=== PATIENT | female | born 1985 | race Hispanic/Latino ===

== ENCOUNTER → 2024-08-22 10:10 | Outpatient (REF) | payer OTHER, SELFPAY ==
[2024-08-22 11:44] LABS: % Basophils 0.3 % (0-2); % Immature Granulocytes 0.3 % (0-0.5); % Monocytes 6.5 % (1.7-9.3); % Neutrophils 63.9 % (42.2-75.2); Absolute Eosinophils 0.1 10^3/uL (0-0.7); Absolute Lymphocytes 1.6 10^3/uL (1.2-3.4); Absolute Monocytes 0.4 10^3/uL (0.1-0.6); Absolute Neutrophils 3.9 10^3/uL (1.4-6.5); Hematocrit 36.9 % (37.0-47.0); Hemoglobin 12.2 g/dL (12.0-16.0); Mean Corp Hgb Conc. 33.1 g/dL (33.0-37.0); Mean Corpuscular Hgb 27.6 pg (27.0-31.0); Mean Corpuscular Volume 83.5 fL (81.0-99.0); Mean Platelet Volume 11.4 fL (7.4-10.4); Nucleated Red Blood Cells % 0 %; Platelet Count 261 10^3/uL (130-400); Red Blood Cell Count 4.42 10^6/uL (4.20-5.40); Red Cell Dist. Width 15.9 % (11.5-14.5)
[2024-08-22 12:03] LABS: Glycohemoglobin (HgbA1c) 5.6 % (4.0-5.6)
[2024-08-22 12:12] LABS: ALT (SGPT) 28 U/L (0-35); AST (SGOT) 33 U/L (14-36); Albumin 4.9 g/dl (3.5-5.0); Alkaline Phosphatase 113 U/L (38-126); Blood Urea Nitrogen 13 mg/dl (7-17); Calcium 9.5 mg/dl (8.4-10.2); Carbon Dioxide 30 mmol/L (22-30); Chloride 100 mmol/L (98-107); Glucose 87 mg/dl (70-99); HDL Cholesterol 76 mg/dl; LDL Cholesterol, Calculated 119 mg/dl; Potassium 4.1 mmol/L (3.5-5.1); Sodium 140 mmol/L (135-145); Total Bilirubin 0.4 mg/dl (0.2-1.3); Total Cholesterol 213 mg/dl (50-199); Total Protein 8.5 g/dl (6.3-8.2); Triglyceride 90 mg/dl (10-149); Very Low Density Lipoprotein 18 mg/dl (0-30); eGFR > 60.00
[2024-08-22 12:44] LABS: TSH Reflex To Free T4 1.55 uIU/ml (0.47-4.68)
== END ==
LOC: REG 10:10
PROVIDERS: ATTENDING PHYSICIAN Nurse Practitioner Family
DX: Z00.01 Encounter for general adult medical examination with abnormal findings (principal); I10 Essential (primary) hypertension
CPT/HCPCS: 36415; 80053; 80061; 83036; 84443; 85025

== ENCOUNTER 2024-10-07 13:45 | Emergency (ER) | payer OTHER, SELFPAY ==
[2024-10-07 13:55] VITALS: BP 149/94
[2024-10-07 14:19] LABS: % Basophils 0.2 % (0-2); % Eosinophils 0.3 % (0-6); % Immature Granulocytes 0.6 % (0-0.5); % Lymphocytes 5.3 % (20.5-51.1); % Monocytes 7.3 % (1.7-9.3); % Neutrophils 86.3 % (42.2-75.2); Absolute Eosinophils 0.1 10^3/uL (0-0.7); Absolute Immature Granulocytes 0.1 10^3/uL (0-0.05); Absolute Monocytes 1.4 10^3/uL (0.1-0.6); Absolute Neutrophils 16.6 10^3/uL (1.4-6.5); Hematocrit 34.9 % (37.0-47.0); Hemoglobin 11.6 g/dL (12.0-16.0); Mean Corp Hgb Conc. 33.2 g/dL (33.0-37.0); Mean Corpuscular Hgb 27.6 pg (27.0-31.0); Mean Corpuscular Volume 82.9 fL (81.0-99.0); Mean Platelet Volume 9.9 fL (7.4-10.4); Nucleated Red Blood Cells % 0 %; Platelet Count 283 10^3/uL (130-400); Red Blood Cell Count 4.21 10^6/uL (4.20-5.40); Red Cell Dist. Width 15.5 % (11.5-14.5); White Blood Cell Count 19.3 10^3/uL (4.8-10.8)
[2024-10-07 14:28] LABS: ALT (SGPT) 27 U/L (0-35); AST (SGOT) 31 U/L (14-36); Albumin 4.5 g/dl (3.5-5.0); Alkaline Phosphatase 121 U/L (38-126); Blood Urea Nitrogen 11 mg/dl (7-17); Calcium 9.2 mg/dl (8.4-10.2); Carbon Dioxide 24 mmol/L (22-30); Chloride 102 mmol/L (98-107); Glucose 163 mg/dl (70-99); Sodium 134 mmol/L (135-145); Total Bilirubin 0.4 mg/dl (0.2-1.3); Total Protein 7.9 g/dl (6.3-8.2); eGFR > 60.00
[2024-10-07 17:02] VITALS: BP 127/83
--- NOTE | 2024-10-07 21:01 | ED.GENMED ---
History of Present Illness
<Tarsha Hauser NP - Last Filed: 10/08/24 22:54>
General
Chief Complaint: Fainting Sensation
Source: patient and family (interpreting for her)
Exam Limitations: none
Time Seen by Provider: 10/07/24 20:49
Nursing documentation reviewed up to this point in time: agreed with
History of Present Illness
History of Present Illness:
Patient to ED wtih complaint of lower abdominal pain, diarrhea. States she felt ok this AM but while at work developed dizziness. Dizziness resolved but she then deveoped diarrhea. Brought to ED by family for eval. No further episodes of
diarrhea or dizziness but complains of lower abd. pain now. Denies fever/chills.
Past History
<Tarsha Huaser NP - Last Filed: 10/08/24 22:54>
Past History
ED Past Medical History: None
ED Past Surgical History:
Review of Systems
<Tarsha Hauser NP - Last Filed: 10/08/24 22:54>
Review of Systems
Allergies reviewed?: Yes
All Other Systems: ROS reviewed and negative except as documented in HPI and ROS
Constitutional: Reports no symptoms
EENT: Reports no symptoms
Respiratory: Reports no symptoms
Cardiac: Reports no symptoms
ABD/GI: Reports abdominal pain (Lower abd. pain)
: Reports no symptoms
Musculoskeletal: Reports no symptoms
Skin: Reports no symptoms
Neurological: Reports dizzy (Dizziness this AM but resolved)
Psychiatric: Reports no symptoms
Phy Exam
<Tarsha Hauser NP - Last Filed: 10/08/24 22:54>
General Physical Exam
General Presentation: mild distress
General age: appears stated age
General Skin: warm and dry
General Habitus: normal
General Mental: alert
Cardiovascular Exam
Cardiovascular Exam: regular rate/rhythm and no edema
Pulmonary Exam
Pulmonary Exam: lungs clear and no respiratory distress
Gastrointestinal Exam
Gastrointestinal Exam: soft, no organomegaly, no pulsatile mass, non distended and no cva tenderness
Palpation: left upper quadrant: No tenderness, left lower quadrant: Moderate tenderness, right upper quadrant: No tenderness and right lower quadrant: Moderate tenderness
Auscultation of Abdomen: hyperactive
Musculoskeletal Exam
Musculoskeletal Exam: full ROM and neuro vasc intact
Skin Exam
Skin Exam: normal color, warm/dry and no rash
Psychiatric Exam
Psychiatric Exam: normal mood/affect
Course
<Tarsha Hauser NP - Last Filed: 10/08/24 22:54>
Orders/Labs/Results
Orders:
Orders
10/07/24 14:00
Electrocardiogram (*1) Urgent
Reason for Study: Syncope
EKG- Treatment ONCE
10/07/24 14:08
Complete Blood Count/With Diff Urgent
Comprehensive Metabolic Panel Urgent
HCG, Serum Qualitative Screen Urgent
Comment: ADDON
10/07/24 20:59
0.9% Sodium Chloride 1000 ml [Nss] 1,000 ml IV BOLUS
Ketorolac [Toradol] 30 mg IV NOW STA
10/07/24 21:00
Add On- LAB Urgent
Tests Added?: Serum qualitative HCG
Urinalysis Reflex To Culture Urgent
Date Specimen was Collected: 10/08/24
Time Specimen was Collected: 00:27
10/07/24 21:03
Iohexol [Omnipaque] See Protocol PO NOW STA
10/07/24 22:15
Lactic Acid Urgent
10/07/24 23:59
Norovirus by PCR Urgent
BENEDICT Source: Feces/Stool
Specimen Description:
Date Specimen was Collected: 10/08/24
Time Specimen was Collected: 01:39
STOOL [C difficile Antigen & Toxins] Urgent
BENEDICT Source: Feces/Stool
Specimen Description:
Date Specimen was Collected: 10/08/24
Time Specimen was Collected: :39
Stool Culture Urgent
BENEDICT Source: Feces/Stool
Specimen Description:
Date Specimen was Collected: 10/08/24
Time Specimen was Collected: :39
10/08/24 00:00
CT Abd/pel W Iv And Oral Contr Urgent
Reason For Exam: lower abd pain
Abnormal Lab Results
10/07/24
14:08
WBC 19.3 H 10^3/uL
(4.8-10.8)
Hgb 11.6 L g/dL
(12.0-16.0)
Hct 34.9 L %
(37.0-47.0)
RDW 15.5 H %
(11.5-14.5)
Abs Immat Gran (auto) 0.1 H 10^3/uL
(0-0.05)
Absolute Neuts (auto) 16.6 H 10^3/uL
(1.4-6.5)
Absolute Lymphs (auto) 1.0 L 10^3/uL
(1.2-3.4)
Absolute Monos (auto) 1.4 H 10^3/uL
(0.1-0.6)
Immature Gran % 0.6 H %
(0-0.5)
Neutrophils % 86.3 H %
(42.2-75.2)
Lymphocytes % 5.3 L %
(20.5-51.1)
Sodium 134 L mmol/L
(135-145)
Glucose 163 H mg/dl
(70-99)
10/07/24 14:08
10/07/24 14:08
Vital Signs
Initial and Last Documented VS:
Initial Vital Signs
Temp Pulse Resp BP Pulse Ox
98.1 F 101 18 149/94 98
10/07/24 13:55 10/07/24 13:55 10/07/24 13:55 10/07/24 13:55 10/07/24 13:55
Last Documented Vital Signs
Temp Pulse Resp BP Pulse Ox
98.3 F 68 26 145/79 99
10/07/24 17:02 10/08/24 01:51 10/08/24 00:45 10/07/24 23:00 10/08/24 01:52
<Eric Garcia, DO - Last Filed: 10/08/24 01:21>
Orders/Labs/Results
Orders:
Orders
10/07/24 14:00
Electrocardiogram (*1) Urgent
Reason for Study: Syncope
EKG- Treatment ONCE
10/07/24 14:08
Complete Blood Count/With Diff Urgent
Comprehensive Metabolic Panel Urgent
HCG, Serum Qualitative Screen Urgent
Comment: ADDON
10/07/24 20:59
0.9% Sodium Chloride 1000 ml [Nss] 1,000 ml IV BOLUS
Ketorolac [Toradol] 30 mg IV NOW STA
10/07/24 21:00
Add On- LAB Urgent
Tests Added?: Serum qualitative HCG
Urinalysis Reflex To Culture Urgent
Date Specimen was Collected: 10/08/24
Time Specimen was Collected: 00:27
10/07/24 21:03
Iohexol [Omnipaque] See Protocol PO NOW STA
10/07/24 22:15
Lactic Acid Urgent
10/07/24 23:59
Norovirus by PCR Urgent
BENEDICT Source: Feces/Stool
Specimen Description:
Date Specimen was Collected: 10/08/24
Time Specimen was Collected: 01:39
STOOL [C difficile Antigen & Toxins] Urgent
BENEDICT Source: Feces/Stool
Specimen Description:
Date Specimen was Collected: 10/08/24
Time Specimen was Collected: 01:39
Stool Culture Urgent
BENEDICT Source: Feces/Stool
Specimen Description:
Date Specimen was Collected: 10/08/24
Time Specimen was Collected: 01:39
10/08/24 00:00
CT Abd/pel W Iv And Oral Contr Urgent
Reason For Exam: lower abd pain
Abnormal Lab Results
10/07/24
14:08
WBC 19.3 H 10^3/uL
(4.8-10.8)
Hgb 11.6 L g/dL
(12.0-16.0)
Hct 34.9 L %
(37.0-47.0)
RDW 15.5 H %
(11.5-14.5)
Abs Immat Gran (auto) 0.1 H 10^3/uL
(0-0.05)
Absolute Neuts (auto) 16.6 H 10^3/uL
(1.4-6.5)
Absolute Lymphs (auto) 1.0 L 10^3/uL
(1.2-3.4)
Absolute Monos (auto) 1.4 H 10^3/uL
(0.1-0.6)
Immature Gran % 0.6 H %
(0-0.5)
Neutrophils % 86.3 H %
(42.2-75.2)
Lymphocytes % 5.3 L %
(20.5-51.1)
Sodium 134 L mmol/L
(135-145)
Glucose 163 H mg/dl
(70-99)
10/07/24 14:08
10/07/24 14:08
Vital Signs
Initial and Last Documented VS:
Initial Vital Signs
Temp Pulse Resp BP Pulse Ox
98.1 F 101 18 149/94 98
10/07/24 13:55 10/07/24 13:55 10/07/24 13:55 10/07/24 13:55 10/07/24 13:55
Last Documented Vital Signs
Temp Pulse Resp BP Pulse Ox
98.3 F 68 26 145/79 99
10/07/24 17:02 10/08/24 01:51 10/08/24 00:45 10/07/24 23:00 10/08/24 01:52
<Tarsha Hauser NP - Last Filed: 10/08/24 22:54>
*Radiology
Radiology exam reviewed: radiology read reviewed
*Pulse Oximetry
Patient hypoxic: no
*Critical Care Note
Total Time (30-74mins, 75-104mins- exclusive of procedures): Not Applicable
<Tarsha Hauser NP - Last Filed: 10/08/24 22:54>
Update Note
Update Note:
Patient to ED wtih complaint of lower abd. pain. Had dizziness and diarrhea earlier today. No vomiting. Labs. CT, IVF ordered. Elevated WBC noted. SHe remains afebrile. Tolerating oral contrast. CT pending. Case discussed with dr. Garcia who
will assume care of this patient.
ED Attending Note
<Tarsha Hauser NP - Last Filed: 10/08/24 22:54>
-
Portions of this chart may have been created with voice recognition software.� Occasional wrong word or��sound alike� substitutions may have occurred due to the inherent limitations of voice recognition software.
<Eric Garcia DO - Last Filed: 10/08/24 01:21>
ED Attending Note
Patient seen and examined by attending physician: Yes
I performed the substantive portion of visit, reviewed & personally made and approve the management plan that is documented in note by myself or TREVON.: Yes
ED Attending Note:
This a 39-year-old female who presents after she had an episode at work where started feel dizzy. She had diarrhea. She reports she has some abdominal pain and nausea. Did not vomit. On my assessment the patient feels much better. She states
her pain is just about completely gone. She has had no further diarrhea or vomiting. White count left shift noted. Afebrile. CT read with no evidence of appendicitis. Ovarian cyst noted but do not think that is relevant. No clinical concern
for gynecologic infection. Exam: No distention, no obvious tenderness on my exam. Vital signs are within reason. I did recommend clear liquid diet for the next 24 hours and slow progression of the diet afterwards. Patient agreed also recommended
PCP follow-up
Discharge Plan
Departure
Patient Disposition: Home (Routine Discharge)
Date of Disposition: 10/08/24
Time of Disposition: 01:22
Patient with high blood pressure during this ER visit?: Yes
Discharge Problem:
Abdominal pain
Instructions: Diarrhea in teens and adults, Clear Liquid Diet, [place] Diet, Abdominal Pain, BLOOD PRESSURE
Referrals:
CLINIC,FREE [Other]
Activity Restrictions/Additional Instructions:
Please advance diet slowly as discussed. Return immediately for intractable vomiting, fevers, abdominal pain that is worsening, shortness of breath, or any other concerns. Please see your doctor in the next 3 to 5 days for follow-up and
reevaluation. Please have your doctor follow-up on your CT scan results
Your blood pressure was elevated while in the Emergency Department, please have your doctor re-evaluate it in the next 48 hours as untreated hypertension may lead to serious complications.
Avance la dieta lentamente vonnie se explic�. Regrese inmediatamente si presenta v�mitos intratables, fiebre, dolor abdominal que empeora, dificultad para respirar o cualquier otra inquietud. Consulte a sykes m�dico en los pr�ximos 3 a 5 d�as para
seguimiento y reevaluaci�n. Michelle que sykes m�dico michelle un seguimiento de los resultados de sykes tomograf�a computarizada.
Sykes presi�n arterial se elev� mientras estaba en el Departamento de Emergencias; p�catie a yskes m�dico que la vuelva a evaluar en las pr�ximas 48 horas, ya que la hipertensi�n no tratada puede provocar complicaciones graves.
Interventions
Interventions:
*Risk Screen - Suicide Last Done: 10/07/24 13:55
*General Assessment Last Done: 10/07/24 13:55
*Neglect/Abuse Screening Last Done: 10/07/24 13:55
*Nursing Disposition Last Done: 10/08/24 01:52
HB-Isylzh-Vqyvnjpkdl Assessment Last Done: 10/07/24 21:51
ED- Cardiac Assessment Last Done: 10/07/24 21:51
ED- Neurological Assessment Last Done: 10/07/24 21:51
Discharge Date and Time
Discharge Date/Time: 10/08/24 01:56
Print Language: CROATIAN
[2024-10-07 21:28] VITALS: BP 121/79
[2024-10-07] MEDS: NSS 1000 IV (21:35)
[2024-10-07] MEDS: TORADOL 30 MG IV (21:45)
[2024-10-07 21:46] LABS: HCG, Serum Qualitative Screen Negative
[2024-10-07] MEDS: OMNIPAQUE 50 ML PO (21:48)
[2024-10-07 21:51] VITALS: BMI 33.8
[2024-10-07 22:00] VITALS: BP 155/89
[2024-10-07 22:43] LABS: Lactic Acid 0.9 mmol/L (0.7-2.0)
[2024-10-07 23:00] VITALS: BP 145/79
[2024-10-08 00:44] LABS: Urine Albumin Negative (Neg - Trace); Urine Bilirubin Negative (Negative); Urine Character Clear (Clear); Urine Color Yellow; Urine Glucose Negative (Negative); Urine Ketone Negative (Negative); Urine Leukocyte Negative (Negative); Urine Nitrite Negative (Negative); Urine Occult Blood Negative (Negative); Urine Urobilinogen Negative (Neg - 1+)
== END 2024-10-08 01:56 | disposition home or self-care (01) ==
LOC: EMR 13:45
PROVIDERS: Emergency Medicine; Nurse Practitioner; EMERGENCY PHYSICIAN Emergency Medicine
DX: R10.30 Lower abdominal pain, unspecified (principal); R03.0 Elevated blood-pressure reading, without diagnosis of hypertension
CPT/HCPCS: 99285; 96374; 96361 ×3; 74177; 80053; 81003; 83605; 84703; 85025; 87045; 87046; 87324; 87427; 87449; 87798; 93005; Q9967

== ENCOUNTER → 2025-05-03 11:25 | Outpatient (REF) | payer OTHER, SELFPAY | LOC: CLINIC 11:25 | PROVIDERS: ATTENDING PHYSICIAN Obstetrics & Gynecology Gynecology | DX: Z12.4 Encounter for screening for malignant neoplasm of cervix (principal) | CPT/HCPCS: 87624 ==

== ENCOUNTER → 2025-05-19 11:16 | Outpatient (REF) | payer OTHER, SELFPAY | LOC: RAD 11:16 | PROVIDERS: ATTENDING PHYSICIAN Obstetrics & Gynecology Gynecology | DX: N83.209 Unspecified ovarian cyst, unspecified side (principal) | CPT/HCPCS: 76830; 76856 ==